=== PATIENT | male | born 1955 | race Caucasian/White ===

== ENCOUNTER 2017-08-19 07:51 | Emergency (ER) | payer OTHER ==
[2017-08-19 08:01] VITALS: RESP 16; TEMP 99
[2017-08-19 08:22] LABS: PLATELET COUNT 224 10^3/uL (150-400)
--- NOTE | 2017-08-19 08:29 | EDPHY ---
H & P Time Seen by Provider: 08/19/17 08:03 HPI/ROS: CHIEF COMPLAINT: Right-sided abdominal pain HISTORY OF PRESENT ILLNESS: 62-year-old male presents with abdominal pain. Onset of suprapubic pain 2 days ago. The pain was intense and persistent, and resolved after several hours. He took an enema, which seemed to relieve the discomfort, but he did not pass any stool. The next morning, he awoke with right-sided abdominal pain, which was equally as intense, but in a different location. Since then he has had intermittent right-sided moderate to severe abdominal pain. He tried another enema, which relieved the discomfort. Urine was cloudy yesterday, but no hematuria or dysuria. No nausea, vomiting or diarrhea. No known fever. No abdominal pain now. No prior similar symptoms. REVIEW OF SYSTEMS: Constitutional: No fever, no chills Eyes: No visual changes ENT: No sore throat Respiratory: No cough, no shortness of breath Cardiac: No chest pain Genitourinary: No hematuria, no dysuria Musculoskeletal: No leg pain or swelling Skin: No rash Neurological: No headache, no weakness Psychiatric: No depression Past Medical/Surgical History: Appendectomy Atrial fibrillation, on aspirin and metoprolol Social History: PCP: [employer]: Dr. Blackwood Smoking Status: Never smoked Physical Exam: General Appearance: Alert, pleasant Eyes: Pupils equal and round, no conjunctival pallor ENT, Mouth: Mucous membranes moist Neck: Normal inspection Respiratory: Lungs are clear to auscultation Cardiovascular: Regular rate and rhythm Gastrointestinal: Abdomen is soft and nontender Back: No CVA tenderness Neurological: A&O, nonfocal, normal gait Skin: Warm and dry Extremities: Normal inspection Psychiatric: Mood and affect normal Constitutional: Initial Vital Signs Temperature (C) 37.2 C 08/19/17 07:58 Heart Rate 81 08/19/17 07:58 Respiratory Rate 16 08/19/17 07:58 Blood Pressure 151/98 H 08/19/17 07:58 O2 Sat (%) 94 08/19/17 07:58 O2 Delivery Mode Room Air Allergies/Adverse Reactions: No Known Allergies Allergy (Unverified 08/19/17 07:56) Home Medications: Medication Instructions Recorded Aspirin 08/19/17 Hydrocodone/APAP 5/325 [Enderlin 1 - 2 tab PO Q4H PRN #10 tab 08/19/17 5/325] Metoprolol Tartrate 08/19/17 Medical Decision Making - Diagnostics Imaging Results: Imaging Impressions Abdomen/Pelvis CT 08/19/17 08:25 Impression: 1. 3 mm calculus distal right ureter, at ureterovesical junction, results in mild right hydronephrosis. 2. Constipation. 3. No acute abdominal mass or lymphadenopathy. Findings discussed with Emergency Department physician, VIVIAN SIDDIQUI at 08/19 9:00. Attention: This CT examination is specifically designed to evaluate patients who are clinically suspected of having acute obstructive uropathy. This examination does not use radiographic contrast, and as such, provides only a limited evaluation of the abdomen, pelvis and retroperitoneum. If there is further clinical suspicion for pathological conditions other than obstructive uropathy, a complete CT evaluation of the abdomen and pelvis utilizing intravenous, oral, and rectal contrast should be considered. ED Course/Re-evaluation: This patient presents with right-sided abdominal pain, most consistent with renal colic, now pain free. CT scan of the abdomen and pelvis without contrast ordered. CT results discussed with the patient; 3 mm right UVJ stone. Remains pain free. Abdomen is soft and nontender. No evidence of urinary tract infection. Kidney stone discharge instructions given. Differential Diagnosis: Differential diagnosis includes though it is not limited to appendicitis, cholecystitis, diverticulitis, pyelonephritis, bowel perforation, small bowel obstruction. - Data Points Laboratory Results: Laboratory Results 08/19/17 08:14 08/19/17 08:14 08/19/17 08/19/17 08/19/17 09:53 08:14 08:14 WBC 13.69 10^3/uL H 10^3/uL (3.80-9.50) RBC 5.89 10^6/uL 10^6/uL (4.40-6.38) Hgb 16.7 g/dL g/dL (13.7-17.5) Hct 49.9 % % (40.0-51.0) MCV 84.7 fL fL (81.5-99.8) MCH 28.4 pg pg (27.9-34.1) MCHC 33.5 g/dL g/dL (32.4-36.7) RDW 14.5 % % (11.5-15.2) Plt Count 224 10^3/uL 10^3/uL (150-400) MPV 9.3 fL fL (8.7-11.7) Neut % (Auto) 80.4 % H % (39.3-74.2) Lymph % (Auto) 12.5 % L % (15.0-45.0) Liberty % (Auto) 5.7 % % (4.5-13.0) Eos % (Auto) 0.4 % L % (0.6-7.6) Baso % (Auto) 0.5 % % (0.3-1.7) Nucleat RBC Rel Count 0.0 % % (0.0-0.2) Absolute Neuts (auto) 11.00 10^3/uL H 10^3/uL (1.70-6.50) Absolute Lymphs (auto) 1.71 10^3/uL 10^3/uL (1.00-3.00) Absolute Monos (auto) 0.78 10^3/uL 10^3/uL (0.30-0.80) Absolute Eos (auto) 0.06 10^3/uL 10^3/uL (0.03-0.40) Absolute Basos (auto) 0.07 10^3/uL 10^3/uL (0.02-0.10) Absolute Nucleated RBC 0.00 10^3/uL 10^3/uL (0-0.01) Immature Gran % 0.5 % % (0.0-1.1) Immature Gran # 0.07 10^3/uL 10^3/uL (0.00-0.10) Sodium 142 mEq/L mEq/L (135-145) Potassium 4.2 mEq/L mEq/L (3.5-5.2) Chloride 104 mEq/L mEq/L (97-110) Carbon Dioxide 24 mEq/l mEq/l (22-31) Anion Gap 14 mEq/L mEq/L (8-16) BUN 27 mg/dL H mg/dL (7-23) Creatinine 1.1 mg/dL mg/dL (0.7-1.3) Estimated GFR > 60 Glucose 101 mg/dL H mg/dL (70-100) Calcium 9.2 mg/dL mg/dL (8.5-10.4) Total Bilirubin 0.6 mg/dL mg/dL (0.1-1.4) Conjugated Bilirubin 0.3 mg/dL mg/dL (0.0-0.5) Unconjugated Bilirubin 0.3 mg/dL mg/dL (0.0-1.1) AST 28 IU/L IU/L (17-59) ALT 43 IU/L IU/L (21-72) Alkaline Phosphatase 76 IU/L IU/L (38-126) Total Protein 6.7 g/dL g/dL (6.3-8.2) Albumin 4.0 g/dL g/dL (3.5-5.0) Lipase 105 IU/L IU/L (23-300) Urine Color YELLOW Urine Appearance CLEAR Urine pH 5.0 (5.0-7.5) Ur Specific Elizabeth 1.011 (1.002-1.030) Urine Protein NEGATIVE (NEGATIVE) Urine Ketones NEGATIVE (NEGATIVE) Urine Blood 3+ H (NEGATIVE) Urine Nitrate NEGATIVE (NEGATIVE) Urine Bilirubin NEGATIVE (NEGATIVE) Urine Urobilinogen NEGATIVE EU EU (0.2-1.0) Ur Leukocyte Esterase NEGATIVE (NEGATIVE) Urine RBC 10-15 /hpf H /hpf (0-3) Urine WBC 1-3 /hpf /hpf (0-3) Ur Epithelial Cells NONE SEEN /lpf /lpf (NONE-1+) Urine Mucus TRACE /lpf /lpf (NONE-1+) Urine Glucose NEGATIVE (NEGATIVE) Departure - Departure Disposition: Home, Routine, Self-Care Clinical Impression: Renal colic on right side Condition: Good Instructions: Kidney Stones (ED), Renal Colic (ED), How to Strain Your Urine ( ED) Additional Instructions: Ibuprofen 600 mg 3 times daily while the pain persists. Strain urine as directed. Return to the Emergency Department for intractable pain, fever or vomiting. Followup with the urologist you have been referred to for unimproved symptoms. Referrals: Gurmeet Lomax MD [Medical Doctor] - As per Instructions (Follow-up with your primary care physician or with Dr. Lomax in the office.) Prescriptions: Hydrocodone/APAP 5/325 [Enderlin 5/325] 1 - 2 tab PO Q4H PRN #10 tab PRN Reason: Pain, Moderate
[2017-08-19 09:47] VITALS: BP 145/74; PULSE 82; O2SAT 98
== END 2017-08-19 09:43 | disposition home or self-care (01) ==
DX: N23 Unspecified renal colic (principal); Z79.82 Long term (current) use of aspirin; Z90.89 Acquired absence of other organs